=== PATIENT | female | born 1955 | race Caucasian/White ===

== ENCOUNTER → 2016-12-10 | Outpatient (CLI) | payer OTHER ==
[~2016-12-10] MED LIST: BENADRYL 25MG C25 MG PO; KEFLEX 500MG.500 MG PO; PREDNISONE 10MG10 MG PO
[2016-12-10 18:53] LABS: AMPHETAMINES/METAMPHETAMINES NEGATIVE ng/mL (<1000)
== END ==
LOC: LAB 18:13
PROVIDERS: Physician Assistant
DX: Z79.899 Other long term (current) drug therapy (principal)